=== PATIENT | male | born 1960 | race Caucasian/White ===

== ENCOUNTER → 2018-05-29 | Outpatient (CLI) | payer OTHER ==
[~2018-05-29] MED LIST: CINNAMON PO; FOLIC ACID PO; FURO-92 PO; LISI-167 PO; LISI5TAB7 PO; MAGN400T26 PO; OMEG100023 PO; POTA20PA25 PO; ROSU10TA PO; TRAM50TA2 PO; VITAMIN B12 PO
[2018-05-29 11:51] LABS: ALBUMIN 3.1 g/dL (3.4-5.0); ANION GAP 8 mmol/L (5-15); CALCIUM 9.7 mg/dL (8.5-10.1); CHLORIDE 104 mmol/L (98-107)
[2018-05-29 11:55] LABS: ALANINE AMINOTRANSFERASE 19 U/L (12-78); ALKALINE PHOSPHATASE 79 U/L (45-117); BILIRUBIN,TOTAL 1.3 mg/dL (0.2-1.0); CREATININE 1.18 mg/dL (0.7-1.3); TOTAL PROTEIN 7.8 g/dL (6.4-8.2)
== END | disposition home or self-care (01) ==
LOC: STAR 10:49
PROVIDERS: ATTEND Otolaryngology
DX: Z01.818 Encounter for other preprocedural examination (principal); J32.0 Chronic maxillary sinusitis; J32.2 Chronic ethmoidal sinusitis
CPT/HCPCS: 36415; 80053

== ENCOUNTER 2018-06-05 07:18 | Observation (INO) | payer OTHER ==
[~2018-06-05] VITALS: Ht 172.7 cm; Wt 111.0 kg
[~2018-06-05 07:18] MED LIST changes: +BACITRACIN OINT 500U/GM, 15 GM ONE; +EPINEPHRINE TOPICAL SOLN 1 MG/ML, 30ML ONE; +FLUORESCEIN SODIUM 500 MG/5 ML ONE; +LIDOCAINE 1%-EPI 1:100K, 20ML ONE; +OXYMETAZOLINE NASAL SPRAY 0.05%, 15ML ONE; -ROSU10TA PO; +ROSU10TA2 PO
[2018-06-05] MEDS ORDERED: potassium chloride PO (07:42)
[2018-06-05] MEDS ORDERED: LACTATED RINGERS 1,000 ML IV SCH (07:45)
[2018-06-05] MEDS ORDERED: MIDAZOLAM 1 MG/ML, 2ML ONE (08:14)
[2018-06-05] MEDS ORDERED: FENTANYL PF 250 MCG/5ML ONE ×2 (08:14→10:14)
[2018-06-05 08:27] LABS: ALANINE AMINOTRANSFERASE 19 U/L (12-78); ANION GAP 6 mmol/L (5-15); CHLORIDE 108 mmol/L (98-107); CREATININE 1.05 mg/dL (0.7-1.3)
[2018-06-05 08:30] LABS: ALKALINE PHOSPHATASE 78 U/L (45-117); BILIRUBIN,TOTAL 0.6 mg/dL (0.2-1.0)
[2018-06-05] MEDS ORDERED: ONDANSETRON ODT 8 MG PO PRN (08:30)
[2018-06-05] MEDS ORDERED: ACETAMINOPHEN 325 MG TABLET PO PRN ×2 (08:30→12:30)
[2018-06-05] MEDS ORDERED: PROMETHAZINE 25 MG/ML, 1ML IV PRN (08:30)
[2018-06-05] MEDS ORDERED: OXYcodone 5 MG/5 ML ORAL.SOL UDC PO PRN (08:30)
[2018-06-05] MEDS ORDERED: LABETALOL 5MG/ML, 20ML IV PRN (08:30)
[2018-06-05] MEDS ORDERED: FENTANYL PF 100 MCG/2ML IV PRN (08:30)
[2018-06-05] MEDS ORDERED: ONDANSETRON 2MG/ML, 2ML IV PRN (08:30)
[2018-06-05] MEDS ORDERED: DIAZEPAM 5 MG/ML, 2ML IVPush PRN (08:30)
[2018-06-05] MEDS ORDERED: hydrALAzine 20 MG/ML, 1ML IV PRN (08:30)
[2018-06-05] MEDS ORDERED: ONDANSETRON 2MG/ML, 2ML ONE (09:23)
[2018-06-05] MEDS ORDERED: ROCURONIUM 10MG/ML,5ML ONE (09:23)
[2018-06-05] MEDS ORDERED: DEXAMETHASONE 4 MG/ML, 1ML ONE (09:23)
[2018-06-05] MEDS ORDERED: CEFAZOLIN 1,000 MG ONE (09:23)
[2018-06-05] MEDS ORDERED: SUCCINYLCHOLINE 20 MG/ML, 10ML ONE (09:23)
[2018-06-05] MEDS ORDERED: PHENYLEPHRINE 10 MG/ML ONE (09:23)
[2018-06-05] MEDS ORDERED: PROPOFOL 10 MG/ML, 20ML ONE (09:23)
[2018-06-05] MEDS ORDERED: LIDOCAINE 2% 100MG/5ML SYRINGE ONE (09:23)
[2018-06-05 12:18] VITALS: BP 99/59
[2018-06-05] MEDS ORDERED: ONDANSETRON 2MG/ML, 2ML IVPush PRN (12:30)
[2018-06-05] MEDS ORDERED: HYDROcodone/APAP 5/325 TABLET PO PRN (12:30)
[2018-06-05] MEDS: LACTATED RINGERS 1,000 ML IV SCH ×2 (15:04→22:30)
[2018-06-05 19:58] VITALS: BP 108/65
[2018-06-05] MEDS: AMOXICILLIN/CLAV 875-125MG TABLET PO SCH (20:38)
[2018-06-05] MEDS: LISINOPRIL 5 MG TABLET PO SCH (20:40)
[2018-06-05] MEDS ORDERED: ATORVASTATIN 20 MG TABLET PO SCH (21:00)
[2018-06-06 01:42] VITALS: BP 92/55
[2018-06-06 08:00] VITALS: BP 97/58
[2018-06-06] MEDS: LACTATED RINGERS 1,000 ML IV SCH (08:27)
[2018-06-06] MEDS: AMOXICILLIN/CLAV 875-125MG TABLET PO SCH (08:27)
[2018-06-06] MEDS: LISINOPRIL 5 MG TABLET PO SCH (08:27)
== END 2018-06-06 10:30 | disposition home or self-care (01) ==
LOC: OUT 07:18 → 4NOR 12:08 → OUT 12:13 → DCLOUNGE 06-06 10:25
PROVIDERS: ADMIT Otolaryngology; ATTEND Otolaryngology
DX: J32.9 Chronic sinusitis, unspecified (principal)
CPT/HCPCS: 31201; 31256; 36415; 80053; 88304; 88311; G0378; J0330; J0690; J1100; J2250; J2370; J2405; J2704; J3010; J3490; J7120

== ENCOUNTER 2018-10-08 12:36 | Emergency (ER) | payer OTHER ==
[~2018-10-08] VITALS: Ht 172.7 cm; Wt 107.0 kg
[~2018-10-08 12:36] MED LIST changes: -BACITRACIN OINT 500U/GM, 15 GM ONE; -EPINEPHRINE TOPICAL SOLN 1 MG/ML, 30ML ONE; -FLUORESCEIN SODIUM 500 MG/5 ML ONE; -LIDOCAINE 1%-EPI 1:100K, 20ML ONE; -OXYMETAZOLINE NASAL SPRAY 0.05%, 15ML ONE; +potassium chloride PO
--- NOTE | 2018-10-08 13:18 | NUR ---
PT AMBULATORY TO ROOM. STATES HE HAS LLQ ABDOMINAL PAIN THAT RADIATES TO HIS LEFT LOWER BACK. COSTOVERTEBRAL NOT SENSITIVE. LLQ TENDER TO PALPATION. VSS. PT DENIES SOB. DENIES CP. PT RATES PAIN 6-7/10 ON LLQ AND 5/10 ON BACK AT THIS TIME. PT SITTING ON THE SIDE OF JIMMIE. GEMA. CALL LIGHT IN REACH.
--- NOTE | 2018-10-08 13:24 | NUR ---
PT AMBULATING TO BATHROOM TO PROVIDE URINE SAMPLE.
[2018-10-08] MEDS ORDERED: KETOROLAC 30 MG/1 ML ONE (13:48)
[2018-10-08] MEDS ORDERED: ONDANSETRON ODT 4 MG ONE (13:48)
--- NOTE | 2018-10-08 13:53 | NUR ---
PT MEDICATED PER EMAT. PT TO CT AT THIS TIME.
[2018-10-08] MEDS ORDERED: ONDANSETRON ODT 4 MG PO ONE (14:00)
[2018-10-08] MEDS ORDERED: KETOROLAC 30 MG/1 ML IM ONE (14:00)
--- NOTE | 2018-10-08 14:13 | NUR ---
PT RESTING ON SIDE OF [facility]. NADN. GLYNNS. CALL LIGHT IN REACH.
[2018-10-08 14:19] VITALS: BP 99/55
[2018-10-08 14:19] LABS: MICROSCOPIC INDICATED
[2018-10-08 14:22] LABS: BASOPHILS # (AUTO) 0.02 x10^3/uL (0-0.1); BASOPHILS % (AUTO) 0 % (0-1); EOSINOPHILS # (AUTO) 0.07 x10^3/uL (0-0.4); EOSINOPHILS % (AUTO) 1 % (1-7); LYMPHOCYTES # (AUTO) 0.82 x10^3/uL (1-3.4); LYMPHOCYTES % (AUTO) 8 % (22-44); MD NO; MEAN CORPUSCULAR HEMOGLOBIN 34.8 pg (27.5-34.5); MEAN CORPUSCULAR HGB CONC 32.8 g/dL (33.2-36.2); MEAN CORPUSCULAR VOLUME 105.9 fL (81-97); MONOCYTES # (AUTO) 1.09 x10^3/uL (0.2-0.8); MONOCYTES % (AUTO) 11 % (2-9); NEUTROPHILS # (AUTO) 8.37 x10^3/uL (1.8-6.8); NEUTROPHILS % (AUTO) 81 % (42-75); PLATELET COUNT 115 x10^3/uL (130-400); RED BLOOD COUNT 3.02 x10^6/uL (4.38-5.82); RED CELL DISTRIBUTION WIDTH 16.1 % (9.4-14.8)
[2018-10-08 14:32] LABS: ALBUMIN 3.9 g/dL (3.4-5.0); ANION GAP 10 mmol/L (5-15); CHLORIDE 104 mmol/L (98-107)
[2018-10-08 14:34] LABS: CULTURE INDICATED? YES
[2018-10-08 14:36] LABS: ALANINE AMINOTRANSFERASE 20 U/L (12-78); ALKALINE PHOSPHATASE 76 U/L (45-117); BILIRUBIN,TOTAL 2.3 mg/dL (0.2-1.0); CREATININE 1.73 mg/dL (0.7-1.3); TOTAL PROTEIN 8.6 g/dL (6.4-8.2)
== END 2018-10-08 15:56 | disposition home or self-care (01) ==
LOC: ED 15:41
DX: N28.9 Disorder of kidney and ureter, unspecified (principal); D64.9 Anemia, unspecified; E80.6 Other disorders of bilirubin metabolism; E83.52 Hypercalcemia; D69.6 Thrombocytopenia, unspecified; I10 Essential (primary) hypertension; E78.5 Hyperlipidemia, unspecified; R10.13 Epigastric pain; R10.12 Left upper quadrant pain; R19.00 Intra-abdominal and pelvic swelling, mass and lump, unspecified site
CPT/HCPCS: 36415; 74176; 80053; 81001; 83690; 85025; 87086; 96372; 99284; J1885; Q0162